=== PATIENT | female | born 1940 | race Caucasian/White ===

== ENCOUNTER → 2023-07-15 09:21 | Outpatient (REF) | payer OTHER, SELFPAY | LOC: RAD 09:21 | PROVIDERS: ATTENDING PHYSICIAN Surgery Vascular Surgery; FAMILY PHYSICIAN Family Medicine | DX: I65.23 Occlusion and stenosis of bilateral carotid arteries (principal); I77.1 Stricture of artery; I73.9 Peripheral vascular disease, unspecified | CPT/HCPCS: 93880; 93922; 93925; 93931 ==

== ENCOUNTER → 2024-01-20 09:26 | Outpatient (REF) | payer OTHER, SELFPAY | LOC: RAD 09:26 | PROVIDERS: ATTENDING PHYSICIAN Surgery Vascular Surgery; FAMILY PHYSICIAN Family Medicine | DX: I77.1 Stricture of artery (principal); I65.23 Occlusion and stenosis of bilateral carotid arteries; I73.9 Peripheral vascular disease, unspecified | CPT/HCPCS: 93880; 93922; 93925; 93931 ==

== ENCOUNTER → 2024-01-27 12:02 | Outpatient (REF) | payer OTHER, SELFPAY | LOC: WDC 12:02 | PROVIDERS: ATTENDING PHYSICIAN Family Medicine | DX: Z12.31 Encounter for screening mammogram for malignant neoplasm of breast (principal) | CPT/HCPCS: 77063; 77067 ==

== ENCOUNTER → 2024-07-29 09:18 | Outpatient (REF) | payer OTHER, SELFPAY | LOC: RAD 09:18 | PROVIDERS: ATTENDING PHYSICIAN Surgery Vascular Surgery; FAMILY PHYSICIAN Internal Medicine Cardiovascular Disease; REFERRING PHYSICIAN Family Medicine | DX: I65.23 Occlusion and stenosis of bilateral carotid arteries (principal); I73.9 Peripheral vascular disease, unspecified; I77.1 Stricture of artery | CPT/HCPCS: 93880; 93922; 93925; 93931 ==

== ENCOUNTER 2024-09-09 07:39 | Outpatient (RCR) | payer OTHER, SELFPAY ==
[2024-09-09 08:00] VITALS: BP 152/67
[2024-09-09] MEDS: SODIUM BICARBONATE 1150 MEQ IV (08:21)
[2024-09-09 14:50] VITALS: BP 130/59
== END 2024-09-27 23:59 | disposition home or self-care (01) ==
LOC: OID 07:39
PROVIDERS: ATTENDING PHYSICIAN Surgery Vascular Surgery; FAMILY PHYSICIAN Family Medicine
DX: I77.1 Stricture of artery (principal); I73.9 Peripheral vascular disease, unspecified; I65.22 Occlusion and stenosis of left carotid artery; I65.23 Occlusion and stenosis of bilateral carotid arteries
CPT/HCPCS: 70496; 70498; 96365; 96366; Q9967

== ENCOUNTER → 2025-01-27 12:05 | Outpatient (REF) | payer OTHER, SELFPAY | LOC: WDC 12:05 | PROVIDERS: ATTENDING PHYSICIAN Family Medicine | DX: Z12.31 Encounter for screening mammogram for malignant neoplasm of breast (principal) | CPT/HCPCS: 77063; 77067 ==

== ENCOUNTER → 2025-02-28 10:52 | Outpatient (REF) | payer OTHER, SELFPAY | LOC: HWRCS 10:52 | PROVIDERS: ATTENDING PHYSICIAN Internal Medicine Cardiovascular Disease; FAMILY PHYSICIAN Family Medicine | DX: R00.2 Palpitations (principal); I25.10 Atherosclerotic heart disease of native coronary artery without angina pectoris | CPT/HCPCS: 93306 ==

== ENCOUNTER → 2025-03-15 12:44 | Outpatient (REF) | payer OTHER, SELFPAY | LOC: RAD 12:44 | PROVIDERS: ATTENDING PHYSICIAN Surgery Vascular Surgery; FAMILY PHYSICIAN Family Medicine | DX: I77.1 Stricture of artery (principal); I73.9 Peripheral vascular disease, unspecified; I65.23 Occlusion and stenosis of bilateral carotid arteries | CPT/HCPCS: 93880; 93922; 93925; 93931 ==